=== PATIENT | female | born 1970 | race Caucasian/White ===

== ENCOUNTER 2016-07-19 05:25 | Day surgery (SDC) | payer BC ==
[2016-07-13 10:15] LABS: HEMATOCRIT 41.5 % (36.0-48.0); HEMOGLOBIN 14.5 g/dL (12.0-16.0)
--- NOTE | ~2016-07-19 | OP ---
Record Of Operation [facility] [address] [place]. [address] NAME: JOCELYN COBURN : 72 STATUS : REG [facility]#: [id number] AGE: 45 ADM/REG DATE : 07/19/16 MR#: [id number] REPORT SERV DATE: 07/19/16 DICTATED BY: ANUPAM MEDINA DATE: 07/19/16 REPORT STATUS : Draft TRANSCRIBED BY: MODL DATE: 07/19/16 DATE OF PROCEDURE: 07/19/2016 PREOPERATIVE DIAGNOSES: 1. Right-side L4-5 disc herniation with sequestered fragment. 2. Lumbar radiculopathy, intractable pain. POSTOPERATIVE DIAGNOSES: 1. Right-side L4-5 disc herniation with sequestered fragment. 2. Lumbar radiculopathy, intractable pain. PROCEDURE: Right-side L4-5 microdiscectomy, use of operative microscope, minimal access spine technology, intraoperative O-arm CT scan with computer navigation. SURGEON: Anupam Medina DO. ANESTHESIA: General. ESTIMATED BLOOD LOSS: 10 mL. COMPLICATIONS: None. INDICATIONS: The patient is a 45-year-old with intractable right leg pain, failed multiple attempts at conservative treatment. After discussion of risks and benefits, elected to proceed with surgery. PROCEDURE IN DETAIL: I identified the patient in the holding area. Consent was obtained, went to the operating room, underwent general anesthesia with endotracheal intubation. Prepped and draped in the usual sterile fashion. Operative safety pause was performed and then we proceeded. An O-arm registration frame was placed in the iliac crest. O-arm was brought in for intraoperative CT scan. Computer registration materials were verified. Under computer guidance, a right longitudinal incision was made over the L4-5 level taken down through the fascial layer. Tube dilators were used to minimally and invasively dissect down to the L4-5 interspace. Operative microscope was brought in. A francia was used to perform a laminotomy. Nitesh performed a foraminotomy. The L4 lamina on the right side was removed up to the L3-L4 interspace as there was a sequestered fragment that traveled all the way up to the L3-L4 level as well. The L4-5 disc space was incised with a knife. Free disc material removed with pituitary. Multiple sequestered fragments were removed from behind the L4 vertebral body and the L4 and L5 nerve roots were completely free of compression at the end of the case. They were very red and irritated and inflamed looking from severe compression at the end of the case. There was no further compression noted. Irrigation performed. Hemostasis achieved. mg of Depo-Medrol injected over the nerves. Layered closure performed. Sterile dressings were applied. The patient awoken and extubated, taken to the recovery room in stable condition. OPERATIVE FINDINGS: Right L4-5 sequestered disc fragment, disc herniation. Record Of Operation [address] [address] NAME: JOCELYN COBURN : 72 STATUS : REG [facility] PAT#: [id number] AGE: 45 ADM/REG DATE : 07/19/16 MR#: [id number] REPORT SERV DATE: 07/19/16 DICTATED BY: ANUPAM MEDINA DATE: 07/19/16 REPORT STATUS : Draft TRANSCRIBED BY: LOUANN DATE: 07/19/16 SCARLETT/LOUANN Anupam Medina DO / [id number] CC: Anupam Medina DO
[~2016-07-19 05:25] MED LIST: ASAB PO; LEVAQUIN750 MG PO; LEXAPRO10 PO; NICODERM C21 MG/241 TOP; NORCO1 TA1 PO; PROAIR HFA; TAMIFLU PO; VIST25 PO; [UNRECOGNIZED DRUG - OTHER]
== END 2016-07-19 14:39 | disposition home or self-care (01) ==
LOC: SDC 05:25
PROVIDERS: Orthopaedic Surgery
PROC: 01NB0ZZ Release Lumbar Nerve, Open Approach (ICD-10-PCS; 2016-07-19)
PROC: 0SB20ZZ Excision of Lumbar Vertebral Disc, Open Approach (ICD-10-PCS; principal; 2016-07-19 06:45)
DX: M51.16 Intervertebral disc disorders with radiculopathy, lumbar region (principal); F17.210 Nicotine dependence, cigarettes, uncomplicated; Z88.0 Allergy status to penicillin
CPT/HCPCS: 84703; 85014; 85018; 88304; 88311; A9270-GY; J0690; J1030; J1170; J2250; J2405; J2710; J3010